=== PATIENT | male | born 1995 | race Caucasian/White ===

== ENCOUNTER 2023-08-09 13:00 | Outpatient (RCR) | payer OTHER, SELFPAY | END 2023-08-09 23:59 | disposition home or self-care (01) | LOC: RPT 13:00 | PROVIDERS: ATTENDING PHYSICIAN Specialist; FAMILY PHYSICIAN Physician Assistant Medical | DX: R35.0 Frequency of micturition (principal); Z73.6 Limitation of activities due to disability; M62.81 Muscle weakness (generalized); M62.838 Other muscle spasm | CPT/HCPCS: 97140; 97162; 97530 ==

== ENCOUNTER 2023-09-06 12:04 | Outpatient (RCR) | payer OTHER, SELFPAY | END 2023-09-06 23:59 | disposition home or self-care (01) | LOC: RPT 12:04 | PROVIDERS: ATTENDING PHYSICIAN Specialist; FAMILY PHYSICIAN Physician Assistant Medical | DX: R35.0 Frequency of micturition (principal); Z73.6 Limitation of activities due to disability; M62.81 Muscle weakness (generalized); R27.8 Other lack of coordination; M62.838 Other muscle spasm | CPT/HCPCS: 97140; 97530 ==

== ENCOUNTER 2023-10-07 16:40 | Outpatient (RCR) | payer OTHER, SELFPAY | END 2023-10-07 23:59 | disposition home or self-care (01) | LOC: RPT 16:40 | PROVIDERS: ATTENDING PHYSICIAN Specialist; FAMILY PHYSICIAN Physician Assistant Medical | DX: R35.0 Frequency of micturition (principal); Z73.6 Limitation of activities due to disability; M62.81 Muscle weakness (generalized); R27.8 Other lack of coordination; M62.838 Other muscle spasm | CPT/HCPCS: 97140; 97530 ==

== ENCOUNTER 2023-10-30 14:04 | Outpatient (RCR) | payer OTHER, SELFPAY | END 2023-10-30 23:59 | disposition home or self-care (01) | LOC: RPT 14:04 | PROVIDERS: ATTENDING PHYSICIAN Specialist; FAMILY PHYSICIAN Physician Assistant Medical | DX: R35.0 Frequency of micturition (principal); Z73.6 Limitation of activities due to disability; M62.81 Muscle weakness (generalized); R27.8 Other lack of coordination; M62.838 Other muscle spasm | CPT/HCPCS: 97530 ==

== ENCOUNTER 2023-11-28 13:03 | Outpatient (RCR) | payer OTHER, SELFPAY | END 2023-11-28 23:59 | disposition home or self-care (01) | LOC: RPT 13:03 | PROVIDERS: ATTENDING PHYSICIAN Specialist; FAMILY PHYSICIAN Physician Assistant Medical | DX: R35.0 Frequency of micturition (principal); Z73.6 Limitation of activities due to disability; M62.81 Muscle weakness (generalized); R27.8 Other lack of coordination; M62.838 Other muscle spasm | CPT/HCPCS: 97530 ==

== ENCOUNTER 2023-12-12 13:03 | Outpatient (RCR) | payer OTHER, SELFPAY | END 2023-12-12 23:59 | disposition home or self-care (01) | LOC: RPT 13:03 | PROVIDERS: ATTENDING PHYSICIAN Specialist; FAMILY PHYSICIAN Physician Assistant Medical | DX: R35.0 Frequency of micturition (principal); Z73.6 Limitation of activities due to disability; M62.81 Muscle weakness (generalized); R27.8 Other lack of coordination; M62.838 Other muscle spasm | CPT/HCPCS: 97530 ==

== ENCOUNTER 2024-01-13 16:01 | Outpatient (RCR) | payer OTHER, SELFPAY | END 2024-01-14 06:14 | disposition home or self-care (01) | LOC: RPT 16:01 | PROVIDERS: ATTENDING PHYSICIAN Specialist; FAMILY PHYSICIAN Physician Assistant Medical | DX: R35.0 Frequency of micturition (principal); Z73.6 Limitation of activities due to disability; M62.81 Muscle weakness (generalized); R27.8 Other lack of coordination; M62.838 Other muscle spasm | CPT/HCPCS: 97530 ==